=== PATIENT | male | born 1980 | race Caucasian/White ===

== ENCOUNTER 2020-06-08 09:25 | Day surgery (SDC) | payer MEDICARE ==
[~2020-06-08] VITALS: Ht 190.5 cm; Wt 135.0 kg
[2020-06-08] MEDS ORDERED: BUSPAR5 MG PO (10:28)
[2020-06-08] MEDS ORDERED: LIORESAL20 MG PO (10:28)
[2020-06-08] MEDS ORDERED: RILUTEK 50MG TA50 MG PO (10:29)
[2020-06-08] MEDS ORDERED: AMBIEN 5MG TABLE5 MG PO (10:29)
[2020-06-08] MEDS ORDERED: RANEXA1000 MG PO (10:30)
[2020-06-08] MEDS ORDERED: FLEXERIL 1010 MG/TAB PO (10:31)
[2020-06-08] MEDS ORDERED: TIROSINT150 MC1 PO (10:31)
[2020-06-08] MEDS ORDERED: MELATONIN5 M1 PO (10:32)
[2020-06-08] MEDS ORDERED: VITAMIN D31000 I1 PO (10:32)
[2020-06-08] MEDS ORDERED: ALEVE 220MG220 MG PO (10:34)
[2020-06-08] MEDS ORDERED: VITAMIN B12 681 TAB PO (10:35)
[2020-06-08] MEDS ORDERED: VINPOCETINE (10:35)
[2020-06-08] MEDS ORDERED: MIRALAX119G PO (10:36)
[2020-06-08 11:05] VITALS: BP 143/95; PULSE 102; TEMP 98.7
[2020-06-08 12:05] VITALS: BP 98/65; PULSE 70; TEMP 97.6
--- NOTE | 2020-06-08 12:05 | NUR ---
Pt to [facility] via powered wheel chair. Pt drowsy, but awake. Denies pain or nausea. Pt reclines self back in his wheel chair. VSS. Mother at side. Dressing at peg tube site is clean, dry, and intact. Call light within reach.
[2020-06-08 12:20] VITALS: BP 118/78; PULSE 67
--- NOTE | 2020-06-08 12:20 | NUR ---
Pt continues to rest. Denies needs. Call light within reach.
[2020-06-08 12:35] VITALS: BP 121/81; PULSE 73
--- NOTE | 2020-06-08 12:35 | NUR ---
Pt continues to rest. into see pt.
[2020-06-08 12:50] VITALS: BP 122/92; PULSE 86
--- NOTE | 2020-06-08 12:55 | NUR ---
Pt requesting Tylenol for discomfort. Pt able to take pills by mouth. Tylenol 1000mg PO ordered. Will give to pt when pharmacy brings it. Discharge instructions reviewed. Pt and mother voice understanding. Pt being sent home with syringes compatable with peg tube, and drain sponges. IV site discontinued with all parts intact.
--- NOTE | 2020-06-08 13:20 | NUR ---
Pt is experiancing abdominal cramps. Pt reclining in wheel chair. Warm blanket placed on abdomen. Letting pt rest before he is discharged and to see if cramps will subside. Call light within reach.
--- NOTE | 2020-06-08 14:00 | NUR ---
Attempted to discharge patient. As we were walking to private car, pt started having severe cramps to LLQ and legs. We sat in hallway near admissions for approx 20 minutes. Pain too severe to send pt home. Pt diaphoretic. Pt brought back upstairs to [facility]. Message left for asking for orders for pt's home dose of Flexeril and Baclofen. Awaiting return phone call.
--- NOTE | 2020-06-08 14:40 | NUR ---
Flexeril and Baclofen given per orders. Will continue to monitor.
--- NOTE | 2020-06-08 15:30 | NUR ---
Pt states he needs to have a BM. Pt lifted using james lift to [facility] with 2 assist. Pt unable to have BM. Pt lifted on to cart to assist in pulling up pants, and removing wrinkled up sheet from behind his back. Pt then lifted back into his personal powered wheel chair.
--- NOTE | 2020-06-08 16:06 | NUR ---
Pt request to go home. Pt escorted to private car via his personal powered wheel chair. Pt accompanied home by his parents.
== END 2020-06-08 16:07 | disposition home or self-care (01) ==
LOC: SDCO 09:25
DX: Z46.59 Encounter for fitting and adjustment of other gastrointestinal appliance and device (principal); G12.21 Amyotrophic lateral sclerosis; G89.29 Other chronic pain; F32.9 Major depressive disorder, single episode, unspecified; R13.10 Dysphagia, unspecified; R25.2 Cramp and spasm; Z79.899 Other long term (current) drug therapy
CPT/HCPCS: C1769; J2704; J7120